=== PATIENT | female | born 1995 | race Caucasian/White ===

== ENCOUNTER 2024-04-19 12:05 | Outpatient (CLI) | payer OTHER, SELFPAY ==
[2024-04-19 13:02] LABS: Basophils # 0.1 K/mm3 (0-0.2); Basophils % 1.5 % (0.1-2.0); Eosinophils # 0.1 K/mm3 (0.0-0.4); Eosinophils % 1.8 % (0.1-12.0); Hematocrit 39.1 % (37.0-47.0); Hemoglobin 13.2 g/dL (12.2-16.2); Lymphocytes # 1.9 K/mm3 (0.7-4.5); Lymphocytes % 44.8 % (10-50); Mean Corpuscular HGB Conc 33.7 g/dL (31.8-35.4); Mean Corpuscular Hemoglobin 31.1 pg (27.0-31.2); Mean Corpuscular Volume 92.3 fl (81-99); Mean Platelet Volume 7.7 fl (7.4-10.4); Monocytes # 0.2 K/mm3 (0.1-1.0); Neutrophils % 46.8 % (37.0-80.0); Platelet Count 423 K/mm3 (142-424); Red Blood Count 4.24 M/mm3 (4.20-5.40); Red Cell Distribution Width 12.5 % (11.5-17.5); White Blood Count 4.2 K/mm3 (4.8-10.8)
[2024-04-19 13:37] LABS: Alanine Aminotransferase 17 U/L (12-78); Albumin Level 4.1 g/dl (3.5-5.0); Albumin/Globulin Ratio 1.5 (1.1-1.8); Alkaline Phosphatase 38 U/L (38-126); Anion Gap 10.9 mEq/L (5-15); Aspartate Amino Transferase 19 U/L (14-36); Bilirubin,Total 0.6 mg/dl (0.2-1.3); Blood Urea Nitrogen 9 mg/dl (7-17); Calcium 9.2 mg/dl (8.4-10.2); Carbon Dioxide 27 mmol/L (22.0-30.0); Chloride 104 mmol/L (98-107); Estimated Glomerular Filt Rate 75 ml/min (>60); GFR (African American) 90 ML/MIN (>60); Globulin 2.7 g/dL (1.3-3.2); Glucose 75 mg/dl (74-100); Potassium 4.9 mmoL/L (3.5-5.1); Sodium 137 mmol/L (136-145); Total Protein,Serum 6.8 g/dl (6.3-8.2)
[2024-04-19 13:46] LABS: Total Iron Binding Capacity 410 ug/dL (265-497)
[2024-04-19 13:54] LABS: 25-OH Vitamin D, Total 66.4 ng/mL (30-100)
[2024-04-19 14:12] LABS: Ferritin 9.01 ng/ml (6.24-137)
[2024-04-19 14:27] LABS: Vitamin B12 254 pg/mL (239-931)
[2024-04-19 15:42] LABS: Iron 123 ug/dL (37-170)
[2024-04-20 16:23] LABS: Tissue Transglutaminase IgA Ab 13 U/mL (0-3); Tissue Transglutaminase IgG Ab 17 U/mL (0-5)
== END 2024-04-19 23:59 | disposition home or self-care (01) ==
LOC: LAB 12:07
PROVIDERS: PCP Family Medicine; Visit Provider Nurse Practitioner Family
DX: K90.0 Celiac disease (principal)
CPT/HCPCS: 36415; 80053; 82306; 82607; 82728; 83516; 83540; 83550; 85025

== ENCOUNTER 2024-07-15 08:10 | Day surgery (SDC) | payer OTHER, SELFPAY ==
[2024-07-13 12:10] VITALS: BMI 22.3
[2024-07-15] MEDS: LACTATED RINGERS 1000ML 1,000 ML 50 ML IV (08:40)
[2024-07-15 08:44] VITALS: BP 121/72; PULSE 84; RESP 18; TEMP 36.6; O2SAT 100
[2024-07-15 09:19] LABS: HCG Qualitative, Serum Negative (Negative)
--- NOTE | 2024-07-15 10:00 | EXP.HP ---
History of Present Illness *Admission Date: 07/15/24 *Reason for visit:: History of celiac and uveitis and left lower quadrant abdominal pain *History of present illness: Ms. Arteaga is a 29-year-old female who is here for diagnostic colonoscopy. 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 She has a history of celiac disease. The examination is deemed medically necessary for diagnostic colonoscopy to rule out Crohn's/IBD. The patient has been seen, interviewed and examined prior to the procedure by both myself and the anesthesia provider. [facility] Disclaimer: The information contained in this section may have been updated after the patient was seen, as this information can be updated by other users. Medical History (Updated 07/15/24 @ 10:01 by Amol Miranda II, MD) HLA B27 (HLA B27 positive) Celiac disease Surgical History [place] teeth removed History of History of hip surgery H/O removal of cyst History of ankle surgery Family History Grandmother Cancer Mother Anemia Hypertension Grandfather Diabetes Hypertension Stroke Father Hypertension Social History Smoking Status: Never smoker alcohol intake: never substance use type: denies use current occupational status: unemployed Travel in the last 8 weeks: None Have you lived/traveled outside [place] in past 30 days?: No Contact w/someone who lives/traveled outside US past 30 days?: No Exposure to someone with infectious disease in past 14 days?: No Do you have a fever (greater than 100.4 F or 38 C)?: No Have you tested positive for COVID-19: No Exposed to someone with COVID-19 in past 14 days?: No Do you have a sore throat?: No Do you have a cough?: No Do you have any weakness?: No Are you experiencing any nausea/vomitting?: No Do you have any diarrhea?: No Are you experiencing any unusual bleeding?: No Do you have any muscle aches/pain?: No Do you have any abdominal pain?: No Are you experiencing loss of taste or smell?: Yes Review of Systems Review of Systems Review of systems (narrative): Negative *Cardiovascular Comments: Negative *Gastrointestinal Comments: Negative *Genitourinary Comments: Negative *Musculoskeletal Comments: Negative *Neurologic Comments: Negative Meds Home Medications and Allergies Home Medications ?Medication ?Instructions ?Recorded ?Confirmed ?Type norgestimate 0.25 mg-ethinyl 1 tab PO DAILY 04/19/24 07/15/24 History estradiol 35 mcg tablet ([place]) cyanocobalamin (vitamin B-12) 1,000 mcg SQ QMONTH #3 mL 04/21/24 07/15/24 Rx 1,000 mcg/mL injection solution difluprednate 0.05 % eye drops 1 drp Eye-Right TID 06/16/24 07/15/24 History albuterol 90 mcg/actuation aerosol 90 mcg inhalation Q4-6H PRN Asthma 07/15/24 07/15/24 History inhaler New Prescriptions to Start Prescriptions: Allergies Allergy/AdvReac Type Severity Reaction Status Date / Time No Known Allergies Allergy Verified 07/13/24 12:09 Exam Data for Last 24 hours Vital signs and Labs for Last 24 Hours: Temp Pulse Resp BP Pulse Ox O2 Del Method 97.8 F 84 18 121/72 100 Room Air 07/15/24 08:44 07/15/24 08:44 07/15/24 08:44 07/15/24 08:44 07/15/24 08:44 07/15/24 08:44 Laboratory Results - last 24 hr 07/15/24 08:57: Serum HCG, Qual Negative I & O for Last 24 hours: Intake & Output 07/12/24 07/13/24 07/14/24 07/15/24 23:59 23:59 23:59 23:59 Weight 147 lb *Routine HEENT Exam Head: Present normocephalic Eye: Present EOMI and PERRL ENT: Present mucous membranes moist *Routine Neck Exam Neck: Present supple *Routine Respiratory Exam Respiratory: Present CTA bilaterally *Routine Cardiovascular Exam Cardiovascular: Present RRR *Routine Abdominal Exam Abdominal: Present soft and normoactive bowel sounds; Absent tenderness *Routine Rectal Exam Rectal:: deferred *Routine Genitalia Exam Genitalia:: deferred *Routine Extremities Exam Extremities: Absent cyanosis, clubbing or edema *Routine Skin Exam Skin: Present warm; Absent rash *Routine Neurological Exam Neurological: Present alert and oriented X3 Assessment and Plan *Assessment and plan (1) Panuveitis: Status: Acute Category: Medical Code(s): H44.119 - Panuveitis, unspecified eye (2) HLA B27 (HLA B27 positive): Status: Acute Category: Medical Code(s): Z15.89 - Genetic susceptibility to other disease (3) Celiac disease: Status: Acute Category: Medical Code(s): K90.0 - Celiac disease (4) Left lower quadrant abdominal pain: Status: Acute Category: Medical Code(s): R10.32 - Left lower quadrant pain Plan A/P: 1. Panuveitis/HLA-B27 positivity and history of celiac disease with left lower quadrant abdominal pain is the preprocedural diagnosis. The patient will be anesthetized/sedated using MAC sedation. The patient has been seen and examined. Cardiac and lung assessment prior to the examination is stable. Proceed with planned diagnostic colonoscopy
--- NOTE | 2024-07-15 10:02 | P.PCN_ITS ---
[facility] Procedure Note Date: 07/15/24 Time: 10:18 Procedure Note:: Colonoscopy Procedure Report: Colonoscopy with cold biopsies Endoscopist: Amol Miranda II, MD Referring physician: KATALINA Dos Santos, [facility] [place], [id number], [place] [address]/Jasvir River MD [address] [place] [address] Date of Procedure: July 15, 2024 Equipment: Olympus 190 variable stiffness pediatric colonoscope Sedation: MAC sedation Indication: Ms. Arteaga is a 29-year-old female who is here for diagnostic colonoscopy. She previously had strongly positive celiac serologic panel she had an EGD with [facility] in June 2023 with mucosal micronodularity and scalloping and biopsies were consistent with celiac disease. She has been gluten-free since then. Her hives resolved. The patient did have mild elevation of her CRP at 31.9. She has had some very mild constipation and intermittent left lower quadrant abdominal discomfort. She reports mostly regular bowel function with no rectal bleeding or mucus. She reports no bloating or gassiness. The patient developed pain in the right eye and lost her vision 2 days before 2023. She is seeing ophthalmology at the [facility] and was diagnosed with panuveitis of the right eye. She is HLA-B27 positive. There were concerns about IBD. She did see a celiac specialist (Dr. Hima River) at [facility]. Her labs from April 2024 showed no anemia. She also had normal iron levels and normal liver chemistries. Her B12 and vitamin D levels were normal. Her celiac serologies showed more mildly positive tissue transglutaminase IgG and IgA (17 and 13 respectively with normal less than 5). I am not aware that she has had IBD serologies. Procedure: Prior to the procedure, a history and physical exam was performed, and patient's medications and allergies were reviewed. The risks, benefits and alternatives of the sedation and procedure were discussed with the patient. All questions were answered and informed consent was obtained. The patient was brought to the procedure room. Patient identification and proposed procedure were verified by the physician and the nurse. The patient was placed in a left lateral decubitus position and the scope was passed under direct vision. Throughout the procedure, the patient's blood pressure, pulse, and oxygen saturations were monitored continuously. The colonoscopy was accomplished without difficulty. The patient tolerated the procedure well. Findings: On digital rectal examination there was normal rectal tone. There were no external hemorrhoids. The colonoscope was introduced through the anal canal to the rectum and advanced to the cecum. The ileocecal valve and appendiceal orifice were identified. The scope was advanced approximately 20 mm into the ileum which appeared grossly normal. Cold biopsies were taken from the ileum randomly. The scope was then withdrawn into the colon. The cecum, ascending, transverse, descending, sigmoid and rectum were grossly normal. There was normal vascular pattern with no mucosal erythema or edema. Random biopsies were taken from the right and left colon. There were no mucosal abnormalities identified. Upon retroflexion within the rectum there were grade 1 internal hemorrhoids. The preparation was excellent throughout with [place] Preparation Score of 9. The cecal time was 12 minutes. Impression: 1. Normal colonoscopy with intubation of the terminal ileum Plan: There is no evidence of inflammatory bowel disease and I will follow-up the biopsies. The patient still has low-level elevation of celiac serologies from April 2024. She may be getting some unbeknownst gluten exposure. When these antibody levels are low are within the normal range, it provides support that she is maintaining remission of the celiac disease.
[2024-07-15 10:22] VITALS: BP 107/69; PULSE 82; RESP 16; TEMP 36.5; O2SAT 97
[2024-07-15 10:32] VITALS: BP 102/62; PULSE 95; RESP 15; O2SAT 99
[2024-07-15 10:42] VITALS: BP 126/69; PULSE 80; RESP 18; O2SAT 99
[2024-07-15 10:52] VITALS: BP 109/82; PULSE 80; RESP 18; O2SAT 99
== END 2024-07-15 10:52 | disposition home or self-care (01) ==
PROVIDERS: PCP Family Medicine; Visit Provider Internal Medicine Gastroenterology
PROC: 0DJD8ZZ Inspection of Lower Intestinal Tract, Via Natural or Artificial Opening Endoscopic (ICD-10-PCS; CPT 45378; principal; 2024-07-15 09:30)
DX: K90.0 Celiac disease (principal); R10.32 Left lower quadrant pain; Z15.89 Genetic susceptibility to other disease; H44.119 Panuveitis, unspecified eye; K64.0 First degree hemorrhoids
CPT/HCPCS: 45380; 84703; J7120